=== PATIENT | male | born 1965 | race Caucasian/White ===

== ENCOUNTER 2019-01-27 08:38 | Inpatient (IN) | payer OTHER ==
[~2019-01-27] VITALS: Ht 170.2 cm; Wt 79.5 kg
[2019-01-27 08:44] VITALS: Ht 170.2 cm; Wt 79.5 kg
[2019-01-27 09:32] LABS: BASOPHIL % 1.2 % (0-2); PLATELET COUNT 141 x10^3mcL (130-400)
[2019-01-27 10:04] LABS: RED CELL DISTRIBUTION WIDTH 14.9 % (11.5-14.5)
[2019-01-27 10:05] LABS: CALCIUM 9.5 mg/dL (8.5-10.1); CARBON DIOXIDE 25.5 mmol/L (21-32); CREATININE SERUM 1.8 mg/dL (0.7-1.3); POTASSIUM SERUM 3.9 mmol/L (3.5-5.1)
[2019-01-27 10:09] LABS: BILIRUBIN TOTAL 1.46 mg/dL (0.20-1.00); TOTAL PROTEIN, SERUM 6.8 g/dL (6.4-8.2)
[2019-01-27 10:11] LABS: ALBUMIN 3.3 g/dL (3.4-5.0); CHOLESTEROL/HDL RATIO 2.6
[2019-01-27 10:22] LABS: T3 TOTAL 0.88 ng/mL
[2019-01-27 10:49] LABS: FREE T4 0.95 ng/dL (0.76-1.46); FREE THYROXINE INDEX 2.7 ug/dL (1.4-4.5); T4(THYROXINE) 7.6 ug/dL (4.7-13.3)
[2019-01-27 10:57] LABS: microscopic required? NO
[2019-01-27 11:28] LABS: urine erythrocyte NEGATIVE (NEGATIVE)
[2019-01-27 11:44] LABS: AMPHETAMINE QUAL UR POSITIVE (See below)
[2019-01-27 13:13] VITALS: BP 117/81
[2019-01-27 13:23] LABS: MAGNESIUM 1.6 mg/dL (1.8-2.4); PHOSPHOROUS 3.7 mg/dL (2.5-4.9)
[2019-01-27 16:44] VITALS: BP 132/95
[2019-01-27 17:00] VITALS: BP 138/102
[2019-01-27 21:12] VITALS: BP 141/99
[2019-01-28 04:45] VITALS: BP 142/100
[2019-01-28 06:40] LABS: CALCIUM 9.2 mg/dL (8.5-10.1); CARBON DIOXIDE 23.4 mmol/L (21-32); CREATININE SERUM 1.5 mg/dL (0.7-1.3); POTASSIUM SERUM 3.9 mmol/L (3.5-5.1)
[2019-01-28 06:44] LABS: BASOPHIL % 1.1 % (0-2)
[2019-01-28 07:15] LABS: PLATELET COUNT 122 x10^3mcL (130-400); RED CELL DISTRIBUTION WIDTH 15.3 % (11.5-14.5)
[2019-01-28 08:17] VITALS: BP 128/93
[2019-01-28 12:35] VITALS: BP 116/86
[2019-01-28 16:29] VITALS: BP 115/77
[2019-01-28 21:00] VITALS: BP 111/81
[2019-01-29 05:01] VITALS: BP 141/102
[2019-01-29 07:26] LABS: CALCIUM 8.4 mg/dL (8.5-10.1); CARBON DIOXIDE 27.3 mmol/L (21-32); CREATININE SERUM 1.5 mg/dL (0.7-1.3); POTASSIUM SERUM 3.7 mmol/L (3.5-5.1)
[2019-01-29 08:12] VITALS: BP 124/94
[2019-01-29 11:52] VITALS: BP 115/62
[2019-01-29 12:06] LABS: BASOPHIL % 0.6 % (0-2)
[2019-01-29 12:15] LABS: PLATELET COUNT 124 x10^3mcL (130-400); RED CELL DISTRIBUTION WIDTH 15.2 % (11.5-14.5)
[2019-01-29 16:22] VITALS: BP 97/60
[2019-01-29 20:21] VITALS: BP 110/78
[2019-01-30 05:01] VITALS: BP 129/84
[2019-01-30 06:31] LABS: BASOPHIL % 0.8 % (0-2); PLATELET COUNT 237 x10^3mcL (130-400)
[2019-01-30 06:41] LABS: CALCIUM 8.4 mg/dL (8.5-10.1); CARBON DIOXIDE 27.1 mmol/L (21-32); CREATININE SERUM 1.4 mg/dL (0.7-1.3); POTASSIUM SERUM 4.4 mmol/L (3.5-5.1)
[2019-01-30 08:54] VITALS: BP 140/88
[2019-01-30 11:55] VITALS: BP 119/92
[2019-01-30 17:03] VITALS: BP 138/92
[2019-01-30 20:36] VITALS: BP 118/77
[2019-01-31 05:08] VITALS: BP 131/94
[2019-01-31 06:41] LABS: BASOPHIL % 0.7 % (0-2); PLATELET COUNT 157 x10^3mcL (130-400)
[2019-01-31 06:54] LABS: CALCIUM 8.5 mg/dL (8.5-10.1); CARBON DIOXIDE 28.4 mmol/L (21-32); CHLORIDE SERUM 99 mmol/L (98-107); CREATININE SERUM 1.3 mg/dL (0.7-1.3); GFR1 > 60 mL/min; GLUCOSE SERUM 99 mg/dL (74-106); POTASSIUM SERUM 4.4 mmol/L (3.5-5.1); SODIUM SERUM 136 mmol/L (136-145)
[2019-01-31 07:48] VITALS: BP 114/80
[2019-01-31 07:58] LABS: RED CELL DISTRIBUTION WIDTH 14.9 % (11.5-14.5)
[2019-01-31] MEDS ORDERED: COUMADIN4 MG PO (13:03)
[2019-01-31] MEDS ORDERED: LASIX40 MG PO (13:03)
[2019-01-31] MEDS ORDERED: REVATIO20 M1 PO (13:05)
[2019-01-31 13:09] VITALS: BP 128/90
[2019-01-31 14:40] VITALS: BP 128/90
== END 2019-01-31 15:13 | disposition home or self-care (01) | DRG 190 ==
LOC: ED 08:38 → MU 12:09 → DU 12:09 → MU 01-30 13:18
PROVIDERS: Specialist; ADMIT General Practice
DX: I21.4 Non-ST elevation (NSTEMI) myocardial infarction (principal); N17.0 Acute kidney failure with tubular necrosis; I50.9 Heart failure, unspecified; I27.20 Pulmonary hypertension, unspecified; F12.10 Cannabis abuse, uncomplicated; F15.10 Other stimulant abuse, uncomplicated; Z79.82 Long term (current) use of aspirin; Z91.14 Patient's other noncompliance with medication regimen; I11.0 Hypertensive heart disease with heart failure
CPT/HCPCS: 33011; 83880; 84439; G0378; J1650; J1940; J2270; Q0092